=== PATIENT | female | born 1990 | race Caucasian/White ===

== ENCOUNTER 2018-07-21 00:42 | Emergency (ER) | payer SELFPAY ==
[~2018-07-21] VITALS: Ht 172.7 cm; Wt 103.9 kg
[2018-07-21 01:08] VITALS: Ht 172.7 cm; Wt 103.9 kg
[2018-07-21 04:37] VITALS: BP 127/83
== END 2018-07-21 04:37 | disposition home or self-care (01) ==
LOC: ED 00:42
DX: H66.93 Otitis media, unspecified, bilateral (principal); J02.9 Acute pharyngitis, unspecified; Z88.0 Allergy status to penicillin
CPT/HCPCS: J0696